=== PATIENT | male | born 1995 | race African-American/Black ===

== ENCOUNTER 2019-01-01 14:58 | Emergency (ER) | payer SELFPAY ==
[~2019-01-01] VITALS: Ht 185.4 cm; Wt 75.0 kg
[2019-01-01] MEDS ORDERED: BACITRACIN ZINC OINT UDPKT TOP ONE (18:45)
[2019-01-01 19:01] VITALS: BP 122/78
== END 2019-01-01 19:01 | disposition home or self-care (01) ==
LOC: ER 17:22
DX: S61.211A Laceration without foreign body of left index finger without damage to nail, initial encounter (principal); F12.10 Cannabis abuse, uncomplicated; W26.0XXA Contact with knife, initial encounter; Y93.89 Activity, other specified; Y92.89 Other specified places as the place of occurrence of the external cause; Y99.8 Other external cause status
CPT/HCPCS: 99282